=== PATIENT | female | born 1960 | race Caucasian/White ===

== ENCOUNTER 2020-02-01 18:52 | Emergency (ER) | payer OTHER ==
[2020-02-01 19:42] LABS: Absolute Lymphocytes (CBC) 1.8 K/uL (0.7-4.9); Basophils % 0.6 % (0-1.3); Hematocrit 41.6 % (36.0-45.0); Lymphocytes % 22.8 % (15.3-44.8); MPV 9.3 fL (7.6-11.3); RBC Red Blood Cell Count 4.55 M/uL (3.86-4.86)
[2020-02-01] MEDS ORDERED: MORPHINE 4 MG/ML SYR ONE ×2 (19:42→22:15)
[2020-02-01] MEDS ORDERED: LEVALBUTEROL 1.25 MG/3 ML NEB ONE (19:42)
[2020-02-01] MEDS ORDERED: NA CHLORIDE 0.9% 500 ML ONE (19:42)
[2020-02-01 20:15] LABS: BUN Blood Urea Nitrogen 13 mg/dL (7-18); Bicarbonate 28 mmol/L (21-32); Glucose Level 98 mg/dL (74-106); NT PRO-BNP 190 pg/mL (<125); Potassium 3.5 mmol/L (3.5-5.1); Sodium Level 145 mmol/L (136-145)
[2020-02-01] MEDS ORDERED: LORazepam 2 MG/ML VIAL ONE (20:24)
--- NOTE | 2020-02-01 20:52 | RAD REPORT ---
EXAM DESCRIPTION: RAD - Chest Single View - 02/01/2020 8:16 pm CLINICAL HISTORY: COPD COMPARISON: None TECHNIQUE: AP portable chest image was obtained 02/01/2020 8:16 pm . FINDINGS: Lungs are fibrotic. Right hemidiaphragm elevation noted with scarring or atelectasis abutt ing the elevated right hemidiaphragm. No peripheral mass or consolidation. No significant failure or volume overload. Mild forms could be masked. Heart and vasculature are normal. No measurable pleural effusion and no pneumothorax. No acute bone findings seen. Extensive surgical hardware is seen along the lower thoracic and upper lumbar spine. Hardware is present from cervical fusion and left clavicle repair. No acute aortic findings suspected. IMPRESSION: Interstitial opacification most likely chronic fibrotic change. No focal mass or consolidations seen. Prominent interstitial pattern could mask early edema or infilt rate.
[2020-02-01 21:16] LABS: Urine Culture Reflex Order NOT NEEDED; Urine Volume 0.2 mL
[2020-02-01 21:21] LABS: Urine Bacteria 20-50 /HPF (<20); Urine RBC NONE SEEN /HPF (NONE SEEN); Urine Yeast MANY (NONE SEEN); Urine Yeast with Hyphae PRESENT
[2020-02-01 21:22] LABS: Urine Urothelial Cells <5 /HPF (NONE SEEN)
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
[2020-02-01] MEDS ORDERED: CIPROFLOXACIN HCL 500 MG TAB ONE (22:16)
[2020-02-02] MEDS ORDERED: HYDROCODONE/APAP 10/325 TAB ONE (00:16)
[2020-02-02 01:47] VITALS: TEMP 98.3; O2SAT 96
[2020-02-02 01:50] VITALS: BP 147/84
== END 2020-02-02 00:20 | disposition home or self-care (01) ==
LOC: ER 18:52
DX: E86.0 Dehydration (principal); J44.9 Chronic obstructive pulmonary disease, unspecified; I50.9 Heart failure, unspecified
CPT/HCPCS: 96361; 87088; 85025; 87086; 80048; 36415; 81015; 84145; 83880; 71045; 96375; 96374; 99284; J7040